=== PATIENT | female | born 1940 | race Caucasian/White ===

== ENCOUNTER 2017-09-17 16:03 | Emergency (ER) | payer OTHER ==
[2017-09-17] MEDS ORDERED: METOPROLOL TART50 M1 PO (16:15)
[2017-09-17] MEDS ORDERED: LANTUS SOL100 UNIT/1 SC (16:15)
[2017-09-17] MEDS ORDERED: EDARBYCLOR 40-1 EACH PO (16:15)
[2017-09-17] MEDS ORDERED: FUROSEMIDE80 M1 PO (16:16)
[2017-09-17] MEDS ORDERED: ESCITALOPRAM OX10 MG PO (16:16)
[2017-09-17] MEDS ORDERED: PIOGLITAZONE HC15 MG PO (16:16)
[2017-09-17] MEDS ORDERED: GLIMEPIRIDE4 M1 PO (16:16)
[2017-09-17] MEDS ORDERED: SIMVASTATIN80 M1 PO (16:16)
--- NOTE | 2017-09-17 17:33 | RADIOLOGY REPORT ---
EXAMINATION: XR RIGHT ANKLE AND FOOT CLINICAL INFORMATION: Pain after fall COMPARISON: None TECHNIQUE: 3 views of the right ankle and 3 views of the right foot. FINDINGS: Ankle: There is no fracture or dislocation. The ankle mortise is congruent. The talar dome is intact. No definitive ankle joint effusion. There is inferior calcaneal spurring. There is perceived soft tissue swelling inferior to the lateral malleolus. Foot: There is no acute fracture or dislocation. Alignment appears grossly anatomic. There is a bipartite medial sesamoid at the first MTP. There is periarticular demineralization. There is patchy demineralization/erosive change involving the third digit distally, particularly the middle and distal phalanx, with poor visualization of the third DIP joint. The third PIP joint appears well maintained. No definitive associated soft tissue swelling. No radiopaque foreign body. There is mild degenerative change at the first MTP. IMPRESSION: 1. No definitive acute fracture or dislocation. 2. There is an area of patchy demineralization/erosion involving the distal third digit, primarily the middle and distal phalanx with poor visualization of the intervening third DIP joint. This raises the possibility of an inflammatory arthropathy or an infectious process. Correlation with exam and laboratory testing is suggested.
--- NOTE | 2017-09-17 18:00 | ED UPPER/LOWER EXTREMITY COMPL ---
History of Present Illness General Chief Complaint: Foot or Ankle Injury Stated Complaint: R FOOT SWOLLEN Source: patient Exam Limitations: no limitations Vital Signs & Intake/Output Vital Signs & Intake/Output Vital Signs Date Time Temp Pulse Resp B/P B/P Pulse O2 O2 Flow FiO2 Mean Ox Delivery Rate 09/17 1614 97.9 83 22 109/66 98 Allergies Coded Allergies: Sulfa (Sulfonamide Antibiotics) (HIVES 09/17/17) Triage Note: PER PT PAIN TO RLE SINCE SATURDAY, PAIN IS MORE SWOLLEN, Triage Nurses Notes Reviewed? yes Onset: Abrupt Duration: constant Timing: recent history Severity: severe Severity Numbers: 7 HPI: Patient 77-year-old female with past medical history of type 2 diabetes, hypertension and asthma 6 who presents emergency that on Saturday 3 days ago patient was in a seated position in her home where she states that "somehow got my foot stuck" underneath the table where she abruptly dislodged her right foot and had immediate onset of right foot pain. Patient states that since she has noticed worsening swelling and pain upon ambulation and palpation. Patient denies any ankle or knee pain. Patient has taken 1 dose of NSAID and 1 dose of Tylenol with no relief of symptoms Patient denies any shortness of breath fever chills erythema or warmth or cough (Filemon Jacobo) Reconcile Medications Azilsartan Med/Chlorthalidone (Edarbyclor 40-12.5 MG Tablet) 40 MG-12.5 MG TABLET 1 TAB PO DAILY UNK (Reported) Escitalopram Oxalate 10 MG TABLET 1 TAB PO DAILY ANXIETY (Reported) Furosemide 80 MG TABLET 1 TAB PO DAILY FLUID (Reported) Glimepiride 4 MG TABLET 1 TAB PO DAILY DM (Reported) Insulin Glargine,Hum.rec.anlog (Lantus Solostar) 100 UNIT/ML (3 ML) INSULN.PEN 30 UNIT SC QPM DM (Reported) Metoprolol Tartrate 50 MG TABLET 1 TAB PO BID HTN (Reported) Naproxen 375 MG TABLET 1 TAB PO BID PRN PAIN/INFLAMMATION with food Pioglitazone HCl 15 MG TABLET 1 TAB PO DAILY HTN (Reported) Simvastatin (Simvastatin*) 80 MG TABLET 1 TAB PO DAILY CHOL (Reported) Tylenol With Codeine (Tylenol With Codeine #3 Tablet) 300 MG-30 MG TABLET 1 TAB PO BIDP PRN PAIN (More OSWALD,Len Crawley) Past History Travel History Traveled to [place] past 21 day No Medical History Any Pertinent Medical History? see below for history EENT: NONE Cardiovascular: hypertension, CHOL Respiratory: NONE Gastrointestinal: NONE Hepatic: NONE Renal: NONE Musculoskeletal: NONE Psychiatric: NONE Endocrine: DM Surgical History Surgical History: non-contributory Psychosocial History What is your primary language Moldovan Tobacco Use: Never used Family History Hx Contributory? No (Filemon Jacobo) Review of Systems Review of Systems Constitutional: Reports: no symptoms. EENTM: Reports: no symptoms. Respiratory: Reports: no symptoms. Cardiovascular: Reports: no symptoms. Gastrointestinal/Abdominal: Reports: no symptoms. Genitourinary: Reports: no symptoms. Musculoskeletal: Reports: see HPI, joint pain. Skin: Reports: no symptoms. Neurological/Psychological: Reports: no symptoms. Hematologic/Endocrine: Reports: no symptoms. Immunological: Reports: no symptoms. All Other Systems: Reviewed and Negative (Filemon Jacobo) Physical Exam Physical Exam General Appearance: no apparent distress, alert, comfortable Head: atraumatic Eyes: Bilateral: normal appearance. Ears, Nose, Throat: hearing grossly normal Neck: normal inspection Cardiovascular/Respiratory: no respiratory distress Peripheral Pulses: 2+ dorsalis pedis (R) Back: normal inspection Neurologic/Tendon: normal sensation, normal motor functions, normal tendon functions, responds to pain, no evidence tendon injury, no pulse deficit Skin: intact, normal color, warm/dry Diagram Feet Top 1) Noted moderate swelling and point tenderness no erythema dermatomes intact pedal pulse +2 skin intact (Filemon Jacobo) Progress Differential Diagnosis: arterial insufficiency, cellulitis, compartment syndrome , contusion, dislocation, DVT, fracture, gout, septic arthritis, sprain, tendon injury Plan of Care: On examination there is no concerns of infectious process, patient has a mechanism injury prior to onset of pain and swelling. Dc wrap was placed. PRE AND Post neurovascular was noted to right foot Patient was given prescription for assisted walker X-rays are unremarkable for osseous injury Discussed disposition plan with Dr. Aguero who agrees Patient was strongly advised to follow-up discharge instructions and plan Diagnostic Imaging: Viewed by Me: Radiology Read. Radiology Impression: no fracture Comments: SHE WILLPATIENT: MIGUEL ANGEL SALAS PRESENT AGE: 77 PATIENT ACCOUNT NO: [id number] : 38 LOCATION: [facility] ORDERING PHYSICIAN: Len Aguero MD SERVICE DATE: 09/17/17 EXAM TYPE: RAD - XRY-ANKLE 3 OR MORE VIEWS R; XRY-FOOT COMPLETE, R EXAMINATION: XR RIGHT ANKLE AND FOOT CLINICAL INFORMATION: Pain after fall COMPARISON: None TECHNIQUE: 3 views of the right ankle and 3 views of the right foot. FINDINGS: Ankle: There is no fracture or dislocation. The ankle mortise is congruent. The talar dome is intact. No definitive ankle joint effusion. There is inferior calcaneal spurring. There is perceived soft tissue swelling inferior to the lateral malleolus. Foot: There is no acute fracture or dislocation. Alignment appears grossly anatomic. There is a bipartite medial sesamoid at the first MTP. There is periarticular demineralization. There is patchy demineralization/erosive change involving the third digit distally, particularly the middle and distal phalanx, with poor visualization of the third DIP joint. The third PIP joint appears well maintained. No definitive associated soft tissue swelling. No radiopaque foreign body. There is mild degenerative change at the first MTP. IMPRESSION: 1. No definitive acute fracture or dislocation. 2. There is an area of patchy demineralization/erosion involving the distal third digit, primarily the middle and distal phalanx with poor visualization of the intervening third DIP joint. This raises the possibility of an inflammatory arthropathy or an infectious process. Correlation with exam and laboratory testing is suggested. DICTATED BY: Lucia Calvo MD DATE/TIME DICTATED:09/17/171722 (Filemon Jacobo) Departure Departure Disposition: HOME OR SELF CARE Condition: Stable Clinical Impression Primary Impression: Right foot sprain Referrals: Yovani OSWALD,Manuel (PCP/Family) Dimitris Lu DPM Additional Instructions: As discussed begin using the Dc wrap for swelling begin elevating the foot for swelling begin using the prescription of Naprosyn for pain and inflammation begin the prescription of Tylenol with codeine for breakthrough pain, begin using the prescription of the rolling walker given to you in the emergency room however this must be obtained at a medical surgery nurse store, if no better in 3 days follow-up with electronic transaction implementer Dr. Lu for further evaluation treatment, if symptoms worsen return to emergency room. Begin icing the foot 20 minutes every 2 hours Prescription is waiting at [facility] Departure Forms: Customer Survey General Discharge Information (Filemon Jacobo) Departure Prescriptions: Current Visit Scripts Rolling Walker UNIT SEE ADMIN CRITERIA #1 Use as instructed. Naproxen 1 TAB PO BID PRN PAIN/INFLAMMATION #14 TAB with food Tylenol With Codeine (Tylenol With Codeine #3 Tablet) 1 TAB PO BIDP PRN PAIN #8 TAB PA/LABORER [employer] D[employer] Co-Sign Statement Statement: ED Attending supervision documentation- [X] I saw and evaluated the patient. I have also reviewed all the pertinent lab results and diagnostic results. I agree with the findings and the plan of care as documented in the PA's/LABOR[employer]'s documentation. pt presents for eval of right foot pain after catching it between furniture. exam reveals pain and swelling of right mid foot. [] I have reviewed the ED Record and agree with the PA's/[employer]'s documentation. [] Additions or exceptions (if any) to the PAs/LABOR[employer]ENTRY [employer]OCK's note and plan are summarized below: [] (More OSWALD,Len Crawley)
[2017-09-17] MEDS ORDERED: TYLENOL WITH C1 EACH PO (18:47)
[2017-09-17] MEDS ORDERED: NAPROXEN375 M2 PO (18:47)
[2017-09-17] MEDS ORDERED: RW (18:54)
[2017-09-17 19:05] VITALS: BP 112/84
== END 2017-09-17 19:05 ==
LOC: ERH 16:03
DX: S93.601A Unspecified sprain of right foot, initial encounter (principal); X58.XXXA Exposure to other specified factors, initial encounter; Y92.9 Unspecified place or not applicable; Y93.9 Activity, unspecified
CPT/HCPCS: 73610-RT; 73630-RT